=== PATIENT | female | born 2005 | race Caucasian/White ===

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

== ENCOUNTER 2024-07-01 02:34 | Emergency (ER) | payer OTHER ==
[~2024-07-01] VITALS: Ht 160 cm; Wt 69.8 kg
[2024-07-01 02:46] VITALS: BP 134/99
[2024-07-01] MEDS ORDERED: Atropine/Scopalam/Hyoscam/PB 5 ML UDC PO ONE (03:45)
[2024-07-01] MEDS ORDERED: Mag Hydrox/AL Hydrox/Simeth 30 ML UDC PO ONE (03:45)
[2024-07-01] MEDS ORDERED: Lidocaine 2% Viscous Soln 15 ML UDC PO ONE (03:45)
[2024-07-01] MEDS ORDERED: FAMO20 PO (04:35)
== END 2024-07-01 04:42 | disposition home or self-care (01) ==
LOC: ER 02:34
DX: K21.9 Gastro-esophageal reflux disease without esophagitis (principal)
CPT/HCPCS: 99283; A9270